=== PATIENT | female | born 1980 | race Caucasian/White ===

== ENCOUNTER 2022-07-15 23:45 | Emergency (ER) | payer BC, MEDICAID ==
[2022-07-16 00:47] LABS: Bilirubin Neg (Negative); Blood, Urine 250 (Negative); Clarity Slightly Cloudy (Clear); Glucose, Urine (Dipstick) Normal (Negative); Ketone, Urine Negative (Negative); Leukocyte 25 (Negative); Nitrite Negative (Negative); Protein, Urine (Dipstick) 30 mg/dl (Neg-Trace); Specific Gravity, Urine 1.015 (1.005-1.030); Urobilinogen Normal mg/dL (Less than 2)
[2022-07-16 00:48] LABS: Pregnancy Test - Urine (BHCG) Negative (Negative); Pregu Control Background? CLEAR/WHITE (CLR/WHITE); Pregu Control Bar Appear? YES (CONTROL BAR); Specific Gravity 1.015 (1.002-1.036)
[2022-07-16 00:57] LABS: Bacteria/HPF Rare-Few HPF (None Seen)
== END 2022-07-16 03:27 | disposition home or self-care (01) ==
LOC: CSHERS 23:45
DX: N39.0 Urinary tract infection, site not specified (principal); I10 Essential (primary) hypertension
CPT/HCPCS: 74176; 81003; 81015; 81025

== ENCOUNTER 2022-07-28 18:23 | Emergency (ER) | payer BC ==
[2022-07-28 19:26] LABS: #Eosinphils 0.1 10x3/uL (0.0-0.5); #Monocytes 0.4 10x3/uL (0.0-1.1); #Neutrophils 4.5 10x3/uL (1.5-8.4); %Basophils 0.5 % (0.0-2.0); %Eosinophils 1.8 % (0.0-6.0); %Lymphocytes 31.4 % (18.0-47.0); %Monocytes 4.8 % (0.0-10.0); %Neutrophils 61.2 % (40.0-75.0); Hemoglobin 12.9 g/dL (12.0-15.5); Mean Corpuscular HGB CONC 34.7 g/dL (32.0-36.0); Mean Corpuscular Hemoglobin 28.7 pg (27.0-33.0); Mean Corpuscular Volume 82.9 fl (81.6-98.3); Mean Platelet Volume 9.9 fl (7.4-10.4); Platelet Count 199 10x3/uL (150-450); RBC Distribution Width 13.4 % (11.5-14.5); Red Blood Cell (RBC) Count 4.49 10x6/uL (3.90-5.03); White Blood Cell (WBC) Count 7.4 10x3/uL (3.5-10.5)
[2022-07-28 19:41] LABS: ALT (SGPT) 121 U/L (8-55); AST (SGOT) 81 U/L (5-34); Albumin 4.1 g/dL (3.5-5.0); Alkaline Phosphatase 77 U/L (40-110); Anion Gap 14 mmol/L (10-20); BUN (Urea Nitrogen) 10 mg/dL (7.0-18.7); Bilirubin, Total 1.4 mg/dL (0.2-1.2); Calc. Creatinine Clearance 0 mL/min (70-130); Carbon Dioxide 26 mmol/L (22-29); Chloride 103 mmol/L (98-107); Estimated GFR 97; Glucose 109 mg/dL (70-105); Potassium 3.6 mmol/L (3.5-5.1); Protein, Total 8.1 g/dL (6.0-8.3); Sodium 139 mmol/L (136-145)
== END 2022-07-28 20:40 | disposition home or self-care (01) ==
LOC: CSHERS 18:23
DX: R00.2 Palpitations (principal); I10 Essential (primary) hypertension
CPT/HCPCS: 36415; 71045; 80053; 84484; 85025; 93005

== ENCOUNTER 2022-08-09 19:01 | Emergency (ER) | payer BC ==
[2022-08-09] MEDS ORDERED: Ketorolac Tromethamine 30 MG/ML VIAL ONE (20:04)
[2022-08-09] MEDS ORDERED: diphenhydrAMINE 50 MG/ML VIAL ONE (20:04)
[2022-08-09] MEDS ORDERED: Metoclopramide HCl 10 MG/2 ML VIAL ONE (20:04)
[2022-08-09] MEDS ORDERED: Acetaminophen 500 MG TAB ONE (21:16)
== END 2022-08-09 21:14 | disposition home or self-care (01) ==
LOC: CSHERS 19:01
DX: B34.9 Viral infection, unspecified (principal); R51.9 Headache, unspecified; I10 Essential (primary) hypertension
CPT/HCPCS: 70450; 96365; 96375; J1200; J1885; J2765